=== PATIENT | female | born 1990 | race Caucasian/White ===

== ENCOUNTER 2024-11-20 14:29 | Emergency (ER) | payer SELFPAY ==
[2024-11-20 14:41] VITALS: BP 125/95; PULSE 69; TEMP 36.8; O2SAT 99; BMI 27.5
[2024-11-20] MEDS: IBUPROFEN 600 MG TABLET PO (15:42)
[2024-11-20] MEDS: CYCLOBENZAPRINE HCL 10 MG TABLET PO (15:42)
--- NOTE | 2024-11-20 15:56 | ED_ITS ---
HPI HPI - General Adult General Chief complaint: Back Pain/Injury Stated complaint: BACK PAIN Time Seen by Provider: 11/20/24 14:42 History of Present Illness HPI narrative: Patient is a 34-year-old female who presents to the emergency department today for evaluation of concerns for back pain. She endorses she woke up with a pain to the left side of her back is not associated with any injuries or trauma. She mention she began having pain yesterday and did apply heat to this which she thought alleviate her pain some. She states the pain is significantly worse this morning initially and able to arch her back or twist to reach around on the left side. She denies any saddle anesthesia or concerns with bowel/bladder function. No paresthesias, weakness, loss of movement to her extremities. No fevers or history of malignancy. She mention she does have 3 of degenerative disc. She mention she did not take any analgesics prior to evaluation in the ER today. Related Data Previous Rx's ?Medication ?Instructions ?Recorded cyclobenzaprine 10 mg tablet 10 mg PO TID PRN spasms # 10 tabs 11/20/24 methylprednisolone 4 mg tablets in 4 mg PO QID 4 doses #21 ea 11/20/24 a dose pack (Medrol (Aditya)) Allergies Allergy/AdvReac Type Severity Reaction Status Date / Time No Known Drug Allergies Allergy Verified 11/20/24 14:41 Opioid HPI Opioid Management Most Recent Opioid Data: Last Pain Scale 6 Today, 14:45 Last ED Pain Assessment Today, 14:45 Review of Systems ROS Status of ROS 10 or more systems reviewed and unremark able except as noted in history and below PFSH PFSH Social History Little interest or pleasure in doing things: not at all Feeling down, depressed, or hopeless: not at all Exam Narrative Exam Narrative: Constituational: Awake/ alert, no apparent distress, well hydrated HENMT: normocephalic, external ears normal, moist oral mucous membranes and oropharynx normal Eyes: EOMI and conjunctivae normal Neck: ROM intact Chest: inspection of chest normal Respiratory: Normal respiratory effort, clear to auscultation bilaterally Cardio: regular rate and regular rhythm GI: soft to palpation and non-tender Back: +discomfort with palpation over L SI/ paravertebral lumbar region, otherwise back is nontender and normal to inspection. MSK: ROM intact, +NVI Skin: no rashes or petechiae Neuro: no focal deficits Psych: mental status grossly normal Constitutional Vital Signs, click to edit/add: Last Vital Signs Temp 98.2 F 11/20/24 14:41 Pulse 69 11/20/24 14:41 Resp 20 11/20/24 14:41 BP 125/95 H 11/20/24 14:41 Pulse Ox 99 11/20/24 14:41 O2 Del Method Room Air 11/20/24 14:41 Course Vital Signs Vital signs: Vital Signs Temperature 98.2 F 11/20/24 14:41 Pulse Rate 69 11/20/24 14:41 Respiratory Rate 20 11/20/24 14:41 Blood Pressure 125/95 H 11/20/24 14:41 Pulse Oximetry 99 11/20/24 14:41 Oxygen Delivery Method Room Air 11/20/24 14:41 Temperature 98.2 F 11/20/24 14:41 Pulse Rate 69 11/20/24 14:41 Respiratory Rate 20 11/20/24 14:41 Blood Pressure 125/95 H 11/20/24 14:41 Pulse Oximetry 99 11/20/24 14:41 Oxygen Delivery Method Room Air 11/20/24 14:41 Medical Decision Making MDM Narrative Medical decision making narrative: Patient is a well-appearing 34-year-old female who presented to the emergency department today for evaluation of concerns for nontraumatic back pain. Initial examination without any concerning neurovascular or motor findings on exam. No evidence of lumbar radiculopathy on exam. X-ray imaging o f lumbar spine without critical findings however does show degenerative changes to the SI joints which is the region where patient was complaining of pain. She did receive supportive measures of ibuprofen and cyclobenzaprine and on reevaluation she reported improvement in condition. Discussed with the patient clued recommendations for supportive care of back pain. Will discharge home with Medrol Dosepak and cyclobenzaprine. Advised on follow-up with patient's primary care provider for reevaluation. Discussed signs and symptoms of any worsening condition and when to consider reevaluation by the emergency department. Patient verbalized an understanding of this and is agreeable with the plan to be discharged home. Medical Records Medical records reviewed: Yes I reviewed the patient's medical records Imaging Data XR lumbar spine: Attestation: I have reviewed the pertinent imaging results. Radiologist's impression: ITS Impressions Lumbar Spine X-Ray 11/20/24 16:02 IMPRESSION: No fracture or subluxation. There is severe intervertebral disc height loss at L5-S1 with endplate sclerosis and anterior osteophyte formation. Mild degenerative changes are noted in the sacroiliac joints. Impression dictated by: Bernardino Crum M.D. 11/20/2024 4:23 PM Dictation Location: [place] [id number] Electronically authenticated by: [id number] Y Date: 11/20/2024 16:23 Discharge Plan Discharge Chief Complaint: Back Pain/Injury Clinical Impression: Acute lumbar back pain Patient Disposition: Home, Self-Care Prescriptions / Home Meds: New cyclobenzaprine 10 mg tablet 10 mg PO TID PRN (Reason: spasms) Qty: 10 0RF methylprednisolone [Medrol (Aditya)] 4 mg tablets,dose pack 4 mg PO QID Qty: 21 0RF Print Language: Faroese Instructions: Acute Low Back Pain (ED) Additional Instructions: Alternate Tylenol and ibuprofen as needed for any pain. May take cyclobenzaprine as needed for any muscle spasms. Take Medrol Dosepak as prescribed. Rest, ice any sore areas. Avoid heat. Please follow-up with your primary care provider for reevaluation as discussed. Referrals: Physician,Non-Staff, MD [Primary Care Provider] - 1 week
--- NOTE | 2024-11-20 16:02 | XR_ITS ---
[place] [id number] Patient Name: LIANNE BERUMEN MRN: [id number] date: 1990 Sex: F Assigned Patient Location: ED.MAIN Current Patient Location: ED.MAIN Accession/Order Number: [id number] Exam Date: 11/20/2024 16:21 Report Date: 11/20/2024 16:23 At the request of: SPENSER PEACE NP Procedure: XR lumbar spine 2-3V XR lumbar spine 2-3V 11/20/2024 4:05 PM SIGNS AND SYMPTOMS: ^nontraumatic R SI region pain PROTOCOLS: Frontal and lateral radiographs of the lumbar spine COMPARISON: None FINDINGS: The alignment, development and bony structures are normal. There is no fracture or destructive lesion. There is severe intervertebral disc height loss at L5-S1 with endplate sclerosis and anterior osteophyte formation. Mild degenerative changes are noted in the sacroiliac joints. XR/XR lumbar spine 2-3V IMPRESSION: No fracture or subluxation. There is severe intervertebral disc height loss at L5-S1 with endplate sclerosis and anterior osteophyte formation. Mild degenerative changes are noted in the sacroiliac joints. Impression dictated by: Bernardino Crum M.D. 11/20/2024 4:23 PM Dictation Location: [place] [address] Electronically authenticated by: [id number] Y Date: 11/20/2024 16:23
[2024-11-20 16:45] VITALS: BP 125/79; PULSE 70; O2SAT 98
== END 2024-11-20 16:47 | disposition home or self-care (01) ==
PROVIDERS: Emergency Provider Emergency Medicine
DX: M54.50 Low back pain, unspecified (principal)
CPT/HCPCS: 72100; 99283